=== PATIENT | male | born 1975 | race Caucasian/White ===

== ENCOUNTER → 2017-12-29 | Outpatient (CLI) | payer BC ==
[~2017-12-29] MED LIST: AMBIEN10 MG PO; ASPIR 8181 MG PO; COUMADIN5 MG PO; NORCO 10-325 T1 EACH PO; PRILOSEC OTC20 MG PO; PROTONIX40 MG/ML PO; ULTRAM50 MG PO
== END ==
LOC: RAD 09:50
DX: R22.43 Localized swelling, mass and lump, lower limb, bilateral (principal); L81.9 Disorder of pigmentation, unspecified
CPT/HCPCS: 93970